=== PATIENT | female | born 2005 | race Hispanic/Latino ===

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

== ENCOUNTER 2023-05-06 18:39 | Emergency (ER) | payer MEDICAID, SELFPAY ==
[2023-05-06] VITALS (9 sets, daily range): BP systolic 111–137; BP diastolic 61–91; PULSE 65–89; RESP 17–18; TEMP 36.3; O2SAT 92–100
--- NOTE | ~2023-05-06 | CT_ITS ---
EXAMINATION: CT abdomen pelvis wo con DATE: 05/06/2023 21:41 INDICATION: Abdominal pain. Nausea and vomiting. TECHNIQUE: Computed tomography (CT) of the abdomen and pelvis was performed without intravenous contr ast. Automated exposure control and iterative reconstruction technique were employed. The dose-length product was 1046.80 mGy-cm. COMPARISON: None. FINDINGS: The visualized portions of the lung bases are clear without pneumonia or pleural effusion. The heart size is normal. No pericardial effusion. The liver, gallbladder, spleen, pancreas, adrenal glands, and kidneys are normal. There is no urolithiasis. There are no dilated loops of bowel. The ap pendix is normal. There are no pathologically enlarged lymph nodes. There is no free intraperitoneal fluid. There is mild lumbar spondylosis. IMPRESSION: 1. No etiology for the patient's symptoms. Reviewed, dictated and finalized at location E. 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
[2023-05-06 21:02] LABS: Basophils Percent Auto 0.2 % (0.2-1.2); Eosinophils Absolute Auto 0.1 K/mm3 (0-0.3); Eosinophils Percent Auto 0.5 % (0-4.4); Hematocrit 34.6 % (37.0-47.0); Hemoglobin 10.6 g/dL (12.0-15.0); Immature Granulocyte Absolute 0.05 K/mm3 (0.00-0.031); Immature Granulocyte Percent A 0.4 % (0-0.5); Lymphocytes Absolute Auto 2.59 K/mm3 (0.9-3.2); Lymphocytes Percent Auto 19.6 % (18.3-44.2); Mean Corpuscular HGB Conc 30.6 g/dl (32-36); Mean Corpuscular Hemoglobin 23.4 pg (26-34); Mean Corpuscular Volume 76.4 fl (80-100); Mean Platelet Volume 10.8 fl (7.4-10.4); Monocytes Percent Auto 7.3 % (2.6-8.5); Neutrophils Absolute Auto 9.5 K/mm3 (1.3-6.7); Platelet Count Result 362 k/mm3 (150-375); Red Blood Count 4.53 M/mm3 (4.2-5.4); Red Cell Distribution Width 15.1 % (11.5-14.5); White Blood Count 13.2 K/mm3 (4.5-10.0)
[2023-05-06 21:12] LABS: Alanine Aminotransferase 15 U/L (6-35); Albumin Level 4.6 g/dL (3.5-5.1); Alkaline Phosphatase 107 U/L (38-126); Anion Gap 12 mmol/L (8-16); Aspartate Amino Transferase 22 U/L (14-36); Bilirubin,Total 0.8 mg/dL (0.2-1.3); Blood Urea Nitrogen 6 mg/dL (7-17); Calcium 9.4 mg/dL (8.4-10.2); Carbon Dioxide 25 mmol/L (22-30); Chloride 101 mmol/L (98-107); Estimated CRCL calculation 164 ml/min; Estimated Glomerular Filt Rate > 60; Glucose 95 mg/dL (65-110); Lipase 44 U/L (23-300); Potassium 3.7 mmol/L (3.4-5.0); Sodium 138 mmol/L (137-145)
[2023-05-06 21:12] LABS: Appearance Urine Cloudy (Clear); Bacteria Urine Rare /hpf; Bilirubin Urine Negative (Negative); Blood Urine Negative (Negative); Color Urine Yellow (Yellow); Glucose Urine UA Negative (Negative); Ketones Urine Negative (Negative); Leukocyte Esterase Ur Negative LEU/UL (Negative); Nitrate Urine Negative (Negative); Non Pathogenic Casts 0-2; Protein Urine Negative (Negative); RBC Urine 0-2 /hpf (0-2); Specific Grav Ur 1.011 (1.001-1.035); Squamous Epithelial Cell Urine Moderate /hpf (Few); pH Urine 6.5 (5.0-9.0)
[2023-05-06 21:20] LABS: Add Urine Microscopic? YES
--- NOTE | 2023-05-06 21:31 | ED.ABDPAIN ---
HPI - Abdominal Pain General Chief Complaint: Abdominal Pain Stated Complaint: abd pain, decrease appetitie Time Seen by Provider: 05/06/23 20:52 Source: patient Mode of arrival: ambulatory Limitations: no limitations History of Present Illness HPI narrative: 18-year-old female presents today with complaints of epigastric discomfort that started yesterday evening after she took some oral diclofenac. Patient states she was seen at her primary care's office for knee pain they gave her injection of something which made her feel a little bit nauseated that was 2 days ago. She took some diclofenac last night and has been nauseated and vomiting since patient states she has not been able to tolerate foods and she took that oral medication but has been able to keep water down. Denies any fevers, body aches, chills, or recent sick contacts, diarrhea. States that she has some epigastric discomfort she thinks from the nausea and throwing up food. Patient has been able to tolerate water today without issue. Related Data Allergies Allergy/AdvReac Type Severity Reaction Status Date / Time No Known Allergies Allergy Verified 05/06/23 18:47 Review of Systems Review of Systems: All systems reviewed & are unremarkable except as noted in HPI and below PMFSH Past Medical History Medical History No significant past medical history Surgical History Surgical History No significant past surgical history Family History Family History Other No significant family history Social History Social History Smoking status: Current every day smoker Tobacco type: cigarettes Alcohol intake: never Substance use: never Living arrangements: with family Exam Const: General: cooperative, healthy appearing, comfortable, no acute distress and well developed Orientation/consciousness: patient oriented x3 HENMT: Head: normal to inspection Eyes: General: appearance normal, both eyes and all related structures Resp: Effort & Inspection: normal respiratory effort and able to speak in complete sentences Auscultation: clear to auscultation bilaterally Cardio: Rate: regular rate Rhythm: regular rhythm Heart sounds: S1 normal heart sound present and S2 normal heart sound present GI: Inspection: normal to inspection GI Palp: No abdominal tenderness, Yes Soft to palpation and No Tenderness to palpation present (GI) Auscultation: normal bowel sounds Neuro: General: patient oriented x3 Course Vital Signs Vital signs: Vital Signs Temperature 97.3 F L 05/06/23 18:44 Pulse Rate 89 05/06/23 18:44 Respiratory Rate 17 05/06/23 18:44 Blood Pressure 137/91 H 05/06/23 18:44 Pulse Oximetry 100 05/06/23 18:44 Oxygen Delivery Room Air 05/06/23 18:44 Temperature 97.3 F L 05/06/23 18:44 Pulse Rate 70 05/06/23 22:32 Respiratory Rate 18 05/06/23 22:32 Blood Pressure 122/69 05/06/23 22:32 Pulse Oximetry 92 05/06/23 22:39 Oxygen Delivery Room Air 05/06/23 18:44 MDM - Abdominal Pain MDM Narrative Medical decision making narrative: 18-year-old female HPI is noted differentials as below. Workup to include CBC, CMP, urinalysis. CBC shows WBC of 13.2 hemoglobin is 10.6 nothing to compare to. CMP without concerning findings. Urine no signs of infection. CT of the abdomen with IV contrast ordered but patient and CT room stating her mother has severe allergic reaction to IV contrast and she does not want it. Changed over to plain. Will give IV fluids, Protonix, and GI cocktail. Patient with improvement after IV fluids and medications. CT of the abdomen shows no concerning findings. Full discharge home plan follow-up with primary care provider. Differential Diagnosis Differential diagnosis: Lik
[2023-05-06] MEDS: ONDANSETRON INJ 4 MG/2 ML VIAL IV PUSH (21:47)
[2023-05-06] MEDS: PANTOPRAZOLE SODIUM IV 40 MG VIAL IV PUSH (21:47)
[2023-05-06] MEDS: LIDOCAINE HCL 2% VISC SOLN 15 ML UDC 20 ML PO (21:47)
[2023-05-06] MEDS: MAG HYDROX/AL HYDROX/SIMETH 30 ML UDC PO (21:47)
[2023-05-06] MEDS: LACTATED RINGERS 1,000 ML 999 ML IV CONT (21:51)
== END 2023-05-06 22:52 | disposition home or self-care (01) ==
PROVIDERS: Emergency Provider Nurse Practitioner Family
DX: K21.9 Gastro-esophageal reflux disease without esophagitis (principal); F17.210 Nicotine dependence, cigarettes, uncomplicated
CPT/HCPCS: 36415; 74176; 80053; 81001; 81025; 83690; 85025; 87086; 96361; 96374; 96375; 99284; A9270; C9113; J2405; J7120

== ENCOUNTER 2024-02-18 19:10 | Emergency (ER) | payer OTHER, SELFPAY ==
[2024-02-18 19:44] VITALS: BP 133/76; PULSE 89; RESP 20; TEMP 36.9; O2SAT 100
--- NOTE | 2024-02-19 02:05 | PC.NURSE ---
Patient and visitor come to desk to state why is there other people that came in after us going first. This RN informed patient and visitor that in the ER patients go back to rooms based on acuity, not first come first serve. Patient and her visitor stated they were leaving and this is ridiculous cause your in pain and she was not, and did not wait for risks of leaving before being seen by a provider and benefits of staying for evaluation. Patient and her visitor left the ED with a steady gait with belongings in hand.
== END 2024-02-19 02:13 | disposition left against medical advice (07) ==
LOC: ANHED 02-19 02:11
DX: K08.89 Other specified disorders of teeth and supporting structures (principal)
CPT/HCPCS: 99199

== ENCOUNTER 2024-04-23 00:04 | Emergency (ER) | payer OTHER, SELFPAY ==
[2024-04-23 00:23] VITALS: BP 124/67; PULSE 79; RESP 16; TEMP 36.3; O2SAT 100
--- NOTE | 2024-04-23 00:33 | PC.NURSE ---
pt actively eating beef jerky bites during triage process.
--- NOTE | 2024-04-23 02:24 | ED_ITS ---
HPI - Dental/Oral General Chief complaint: Dental/Oral Stated complaint: dental pain Time Seen by Provider: 04/23/24 02:21 Source: patient and family (mother (had also been a patient for different issue)) Mode of arrival: ambulatory Limitations: no limitations History of Present Illness HPI Narrative: Patient presents with right upper tooth/dental pain x1 week. She states no dentist will see her since she is 19years old. She is also having right ear pain. She has been taking Orajel and taking ibuprofen more than I should. She tried two 200mg tablets but that didn't work so she started taking 4 or 5 tablets every 4-6 hours. However, she also states she has been staggering this with acetaminophen. She states the pain prompted her to present earlier this week but she was in the waiting room and waited and / or was told there was nothing that could be done so she left. No fever. This has never happened before. No CP or shortness of breath. Related Data Allergies Allergy/AdvReac Type Severity Reaction Status Date / Time No Known Allergies Allergy Verified 02/18/24 19:16 [facility] Past Medical History Medical History No significant past medical history Surgical History Surgical History No significant past surgical history Family History Family History Mother UTI (urinary tract infection) Other No significant family history Social History Social History Smoking status: Current every day smoker Tobacco type: cigarettes Alcohol intake: never Substance use: never Living arrangements: with family Exam Narrative: GENERAL: Well-appearing, well-nourished, in moderate acute distress. HEAD: Normocephalic, atraumatic. No significant facial swelling. Normal to palpation without induration. EYES: Non injected, non icteric ENT: Nares clear, no rhinorrhea or epistaxis. no trismus. Uvula midline. Bilateral tympanic membranes are pearly tom without effusion or bulging or erythema. Tenderness to percussion at Tooth #1 though without appreciable abscess, inflammation, fracture. Good dentition without marked carvities or degeneration. . NECK: Supple. CHEST: Speaking in full sentences. No respiratory distress. HEART: Regular rate and rhythm. . ABDOMEN: Soft, nondistended. EXTREMITIES: Normal range of motion. No lower extremity edema. SKIN: Warm, dry, no rash. NEURO: No focal deficits. Alert and oriented x3. PSYCH: Normal mood and affect. Course Vital Signs Vital signs: Vital Signs Temperature 97.4 F L 04/23/24 00:23 Pulse Rate 79 04/23/24 00:23 Respiratory Rate 16 04/23/24 00:23 Blood Pressure 124/67 04/23/24 00:23 Pulse Oximetry 100 04/23/24 00:23 Temperature 97.6 F 04/23/24 02:57 Pulse Rate 67 04/23/24 02:57 Respiratory Rate 18 04/23/24 02:57 Blood Pressure 117/86 04/23/24 02:57 Pulse Oximetry 99 04/23/24 02:57 MDM - Dental/Oral MDM Narrative Medical decision making narrative: Patient presents with pain at Tooth #1 of 1 week's duration. In the emergency department they are afebrile with vital signs within normal limits. Patient is offered a dental/ regional nerve block though she declines and would prefer to stick to oral regimen. There is no appreciable abscess on physical exam nor significant obvious dental cavities or fracture. nevertheless, I do have concern that there will be significant time delay to patient's ability to get into see a dentist and given that this could become infection at that point, will give course of antibiotics as preventative. First dose of medications provided in the ED with prescriptions provided. Differential Diagnosis Differential diagnosis: Likely gingival abscess, dental caries, toothache, dental abscess, fracture of tooth and other (pain with wisdom tooth eruption vs crowding) Discharge Plan Discharge Clinical Impression: Pain, dental Patient Disposition: Home, Self-Care Condition: Stable Instructions: Antibiotic Form, Toothache (ED) Additional Instructions: it is safe to take the medications of acetaminophen and ibuprofen as prescribed. these are safe to take together and in doing so they can work more powerfully than when taken alone. for breakthrough pain, a short course of narcotic/ opiate medications has been prescribed. Remember that each of these tablets contains 325 mg of acetaminophen so take that into accounts was not accidentally overdose as the maximum daily amount of acetaminophen is 4000 mg per day. although there is not currently evidence of an infection, a short course of antibiotics are also being prescribed. Attempted the dental resources on list provided. Return to the emergency department if unable to open mouth/jaw, facial swelling, fever greater than 100.4? F,etc. if you need a primary care physician for other needs, the name of a doctor is listed below. Prescriptions: New ibuprofen 600 mg tablet 600 mg PO TID PRN (Reason: pain) Qty: 30 0RF acetaminophen 500 mg capsule 1,000 mg PO Q6H PRN (Reason: pain) Qty: 30 0RF hydrocodone-acetaminophen 5-325 mg tablet 1 tablet PO Q8H PRN (Reason: pain) Qty: 12 0RF amoxicillin-pot clavulanate 875-125 mg tablet 1 tablet PO Q12H 7 Days Qty: 14 0RF No Action methylprednisolone [Medrol (Mekhi)] 4 mg tablets,dose pack See Rx Instructions PO .COMPLEX Qty: 21 0RF Rx Instructions: orally per package directions clindamycin HCl 300 mg capsule 300 mg PO Q6H 10 Days Qty: 40 0RF benzonatate 200 mg capsule 200 mg PO TID PRN (Reason: cough) Qty: 21 0RF famotidine [Pepcid] 40 mg tablet 40 mg PO BID Qty: 28 0RF ondansetron 4 mg tablet,disintegrating 4 mg PO Q8H PRN (Reason: nausea and vomiting) Qty: 10 0RF Follow-up/Referrals: Portillo Alba MD [Physician] - ( Family practice) UNKNOWN,DOCTOR [Primary Care Provider] - Stand Alone Forms: Work/School Release IP Time of Disposition: 02:43
[2024-04-23] MEDS: AMOXICILLIN/CLAVULANATE K 875-125 MG TAB 1 TABLET PO (02:43)
[2024-04-23] MEDS: KETOROLAC 30 MG/ML VIAL (*BKC) 15 MG IM (02:43)
[2024-04-23] MEDS: HYDROcodone/acetaminophen (*CRX) 5-325 MG TABLET 1 TAB PO (02:43)
[2024-04-23 02:57] VITALS: BP 117/86; PULSE 67; RESP 18; TEMP 36.4; O2SAT 99
== END 2024-04-23 02:58 | disposition home or self-care (01) ==
LOC: ANHED 02:45
PROVIDERS: Emergency Provider Student in an Organized Health Care Education/Training Program
DX: K08.89 Other specified disorders of teeth and supporting structures (principal)
CPT/HCPCS: 96372; 99283; A9270; J1885

== ENCOUNTER 2024-06-08 23:19 | Emergency (ER) | payer OTHER, SELFPAY ==
[2024-06-08 23:36] VITALS: BP 144/76; PULSE 98; RESP 15; TEMP 36.7; O2SAT 100
--- NOTE | 2024-06-09 00:42 | ED_ITS ---
HPI - Dental/Oral General Chief complaint: Dental/Oral Stated complaint: dental pain Time Seen by Provider: 06/09/24 00:25 History of Present Illness HPI Narrative: 19-year-old female with history of dental caries and dental disease presenting to the emergency department chief complaint of recurrent pain in her mouth in the upper right-sided jaw near tooth 1. She states that she has also had pieces of her tooth chipped and break off. She has been taking Tylenol and ibuprofen as well as gel without any relief of her symptoms. Has yet to see a dentist as she states that there are insurance issues and she is on government assistance. Denies any fever, trismus, sore throat, nausea, vomiting. No new trauma or injuries. Teeth map: 2 1. Dentalgia and evidence of old dental fracture but no caries or gingival infection Related Data Allergies Allergy/AdvReac Type Severity Reaction Status Date / Time amoxicillin Allergy Severe Difficulty Verified 06/08/24 23:23 Breathing Review of Systems 2 Review of Systems: As reviewed above in HPI [facility] Past Medical History Medical History No significant past medical history Surgical History Surgical History No significant past surgical history Family History Family History Mother UTI (urinary tract infection) Other No significant family history Social History Social History Smoking status: Current every day smoker Tobacco type: cigarettes Alcohol intake: never Substance use: never Living arrangements: with family Exam 2 Narrative: GENERAL: [Well-appearing, well-nourished, and in no acute distress.] HEAD: [Normocephalic, atraumatic.] EYES: [PERRLA and EOMI.] ENT: Nares clear, no rhinorrhea or epistaxis. Mucous membranes moist. Dental fracture evident over tooth 1. Without any and dental abscess or apical abscess, no dental infection. Tenderness to percussion. Poor dentition but no dental caries or evident abscess formation throughout the rest of the mouth. No trismus. Full range of motion of the head neck and jaw. NECK: Supple. CHEST: [Clear to auscultation. No respiratory distress.] HEART: [Regular rate and rhythm]. No murmur heard. [Normal peripheral pulses.] ABDOMEN: [Soft, nondistended], [nontender], [No rigidity or guarding] EXTREMITIES: Normal range of motion. [No edema.] SKIN: Warm, dry, no rash. NEURO: [No focal deficits]. Alert and oriented [x3.] PSYCH: [Normal mood and affect.] Course Vital Signs Vital signs: Vital Signs Temperature 36.7 C 06/08/24 23:36 Pulse Rate 98 06/08/24 23:36 Respiratory Rate 15 06/08/24 23:36 Blood Pressure 144/76 H 06/08/24 23:36 Pulse Oximetry 100 06/08/24 23:36 Oxygen Delivery Room Air 06/08/24 23:36 Temperature 36.7 C 06/08/24 23:36 Pulse Rate 98 06/08/24 23:36 Respiratory Rate 15 06/08/24 23:36 Blood Pressure 144/76 H 06/08/24 23:36 Pulse Oximetry 100 06/08/24 23:36 Oxygen Delivery Room Air 06/08/24 23:36 MDM - Dental/Oral MDM Narrative Medical decision making narrative: 19-year-old female with dentalgia presenting with pain and increased sensitivity to her right 1st tooth on the upper aspect of the maxillary teeth right-sided. Evidence of a dental fracture that is not new in this area and she has been doing with dental pain on off for last several months but has not seen a dentist secondary to insurance issues. Was previously on completed course of Augmentin and has been taking Tylenol ibuprofen and gel without any relief of symptoms. No clinical indications for continued antibiotic therapy at this time there is no dental disease consistent with dental caries or any abscess formation that requires any drainage. Patient has dentalgia needs to be evaluated by Oral maxillary facial surgeon or dentist for definitive care management. I relayed this information to both the patient and the mother was in the room. We will give her a pain medication here and sent her home with a short course of oxycodone until she can see a dentist outpatient. She was given IM Dilaudid with relief of her pain and subsequently stable for discharge at this time. Medical Records Attestation: I reviewed the patient's medical records. Discharge Plan Discharge Clinical Impression: Dentalgia, Fracture of tooth Patient Disposition: Home, Self-Care Condition: Stable Instructions: Antibiotic Form, Toothache (ED) Additional Instructions: Based on the location in the appearance of the tooth you need a dental or oral surgeon to explore options such as a root canal or extraction and evaluation of your was no teeth. There are no signs of infection this area and you have already completed antibiotics. Options at this time include pain control medications and we will send you home with something stronger than Tylenol or ibuprofen for breakthrough pain only but this is a very short course and you need to dentist. Patient Language: Andorran Prescriptions: New oxycodone 5 mg capsule 5 mg PO Q8H PRN (Reason: pain) Qty: 10 0RF No Action methylprednisolone [Medrol (Mekhi)] 4 mg tablets,dose pack See Rx Instructions PO .COMPLEX Qty: 21 0RF Rx Instructions: orally per package directions clindamycin HCl 300 mg capsule 300 mg PO Q6H 10 Days Qty: 40 0RF ibuprofen 600 mg tablet 600 mg PO TID PRN (Reason: pain) Qty: 30 0RF acetaminophen 500 mg capsule 1,000 mg PO Q6H PRN (Reason: pain) Qty: 30 0RF hydrocodone-acetaminophen 5-325 mg tablet 1 tablet PO Q8H PRN (Reason: pain) Qty: 12 0RF amoxicillin-pot clavulanate 875-125 mg tablet 1 tablet PO Q12H 7 Days Qty: 14 0RF benzonatate 200 mg capsule 200 mg PO TID PRN (Reason: cough) Qty: 21 0RF famotidine [Pepcid] 40 mg tablet 40 mg PO BID Qty: 28 0RF ondansetron 4 mg tablet,disintegrating 4 mg PO Q8H PRN (Reason: nausea and vomiting) Qty: 10 0RF Follow-up/Referrals: UNKNOWN,DOCTOR [Primary Care Provider] - Time of Disposition: 00:46
[2024-06-09] MEDS: HYDROmorphone HCL INJ (*CRX) 1 MG/ML SYR IM (00:50)
== END 2024-06-09 00:59 | disposition home or self-care (01) ==
LOC: ANHED 06-09 00:45
PROVIDERS: Emergency Provider Student in an Organized Health Care Education/Training Program
DX: K03.81 Cracked tooth (principal); F17.210 Nicotine dependence, cigarettes, uncomplicated
CPT/HCPCS: 96372; 99283; J1171

== ENCOUNTER 2024-07-25 10:53 | Emergency (ER) | payer OTHER, SELFPAY ==
[2024-07-25 11:09] VITALS: BP 124/72; PULSE 80; RESP 20; TEMP 36.6; O2SAT 100
--- NOTE | 2024-07-25 13:50 | ED.GENADULT ---
HPI - General Adult General Chief complaint: Upper Respiratory Infection Stated complaint: sore throat Time Seen by Provider: 07/25/24 12:37 History of Present Illness HPI narrative: 19-year-old female presenting with ear pain and sore throat. She has a sick child right URI symptoms several days ago. Patient denies fevers chills chest pain difficulty breathing pain nausea vomiting- Related Data Allergies Allergy/AdvReac Type Severity Reaction Status Date / Time amoxicillin Allergy Severe Difficulty Verified 07/25/24 11:11 Breathing PMFSH Past Medical History Medical History No significant past medical history Surgical History Surgical History No significant past surgical history Family History Family History Mother UTI (urinary tract infection) Other No significant family history Social History Social History Smoking status: Current every day smoker Tobacco type: cigarettes Alcohol intake: never Substance use: never Living arrangements: with family Exam Narrative: APPEARANCE: No apparent distress. Well appearing Head: atraumatic. TMs are normal, mild erythema posterior oropharynx without exudate EYES: EOMI, NOSE: Atraumatic NECK: Trachea midline RESPIRATORY: No increased rate of breathing clear to auscultation CARDIOVASCULAR: RRR, ABDOMINAL: Non-distended soft nontender MUSCULOSKELETAl: No obvious deformities NEURO: Alert. Moving 4/4 extremities SKIN:: Warm, dry. Normal color PSYCHIATRIC: Normal affect Course Vital Signs Vital signs: Vital Signs Temperature 97.8 F 07/25/24 11:09 Pulse Rate 80 07/25/24 11:09 Respiratory Rate 20 07/25/24 11:09 Blood Pressure 124/72 07/25/24 11:09 Pulse Oximetry 100 07/25/24 11:09 Oxygen Delivery Room Air 07/25/24 11:09 Temperature 97.8 F 07/25/24 11:09 Pulse Rate 80 07/25/24 11:09 Respiratory Rate 20 07/25/24 11:09 Blood Pressure 124/72 07/25/24 11:09 Pulse Oximetry 100 07/25/24 11:09 Oxygen Delivery Room Air 07/25/24 12:31 Medical Decision Making MDM Narrative Medical decision making narrative: -Course: 19-year-old presenting with URI symptoms. Positive for RSV. Given symptomatic treatment and discharge Vital Signs Vital Signs: Vital Signs Temperature 97.8 F 07/25/24 11:09 Pulse Rate 80 07/25/24 11:09 Respiratory Rate 20 07/25/24 11:09 Blood Pressure 124/72 07/25/24 11:09 Pulse Oximetry 100 07/25/24 11:09 Oxygen Delivery Room Air 07/25/24 11:09 Temperature 97.8 F 07/25/24 11:09 Pulse Rate 80 07/25/24 11:09 Respiratory Rate 20 07/25/24 11:09 Blood Pressure 124/72 07/25/24 11:09 Pulse Oximetry 100 07/25/24 11:09 Oxygen Delivery Room Air 07/25/24 12:31 Lab Data Labs: Lab Results 07/25/24 07/25/24 Range/Units 13:42 13:49 Monoscreen Pending Influenza A (RT-PCR) Negative (Negative) Influenza B (RT-PCR) Negative (Negative) RSV (RT-PCR) Positive A (Negative) SARS-CoV-2 RNA (RT-PCR) Negative (Negative) Group A Strep (PCR) Not detected (Negative) Discharge Plan Discharge Clinical Impression: Respiratory syncytial virus (RSV) infection Patient Disposition: Home, Self-Care Condition: Stable Instructions: Antibiotic Form, Cold Symptoms (ED) Additional Instructions: You were seen in the emergency department for cold symptoms. Take Motrin Tylenol as needed. Follow-up with your primary care physician Patient Language: Greenlandic Prescriptions: New ibuprofen 800 mg tablet 800 mg PO TID PRN (Reason: pain) 7 Days Qty: 21 0RF acetaminophen 500 mg tablet 1,000 mg PO TID PRN (Reason: max) 7 Days Qty: 42 0RF No Action methylprednisolone [Medrol (Mekhi)] 4 mg tablets,dose pack See Rx Instructions PO .COMPLEX Qty: 21 0RF Rx Instructions: orally per package directions clindamycin HCl 300 mg capsule 300 mg PO Q6H 10 Days Qty: 40 0RF ibuprofen 600 mg tablet 600 mg PO TID PRN (Reason: pain) Qty: 30 0RF acetaminophen 500 mg capsule 1,000 mg PO Q6H PRN (Reason: pain) Qty: 30 0RF hydrocodone-acetaminophen 5-325 mg tablet 1 tablet PO Q8H PRN (Reason: pain) Qty: 12 0RF amoxicillin-pot clavulanate 875-125 mg tablet 1 tablet PO Q12H 7 Days Qty: 14 0RF oxycodone 5 mg capsule 5 mg PO Q8H PRN (Reason: pain) Qty: 10 0RF benzonatate 200 mg capsule 200 mg PO TID PRN (Reason: cough) Qty: 21 0RF famotidine [Pepcid] 40 mg tablet 40 mg PO BID Qty: 28 0RF ondansetron 4 mg tablet,disintegrating 4 mg PO Q8H PRN (Reason: nausea and vomiting) Qty: 10 0RF Follow-up/Referrals: UNKNOWN,DOCTOR [Primary Care Provider] - Stand Alone Forms: Work/School Release IP
[2024-07-25 14:11] LABS: Strep Group A RT-PCR NOT DETECTED (Negative)
[2024-07-25] MEDS: ACETAMINOPHEN 500 MG TABLET 1000 MG PO (14:24)
[2024-07-25 14:25] LABS: Influenza A QL RT-PCR Negative (Negative); Influenza B QL RT-PCR Negative (Negative); RSV RNA, RT-PCR Positive (Negative); SARS-CoV-2 RNA PCR Negative (Negative)
[2024-07-25 15:30] LABS: Monoscreen Negative (Negative); Negative Monotest Control Negative (Negative); Positive Monotest Control Positive (Positive)
== END 2024-07-25 15:16 | disposition home or self-care (01) ==
PROVIDERS: Emergency Provider Emergency Medicine
DX: J02.9 Acute pharyngitis, unspecified (principal); B97.4 Respiratory syncytial virus as the cause of diseases classified elsewhere; Z20.822 Contact with and (suspected) exposure to COVID-19; F17.210 Nicotine dependence, cigarettes, uncomplicated
CPT/HCPCS: 36415; 86308; 87637; 87651; 99283; A9270